=== PATIENT | male | born 1935 | race Caucasian/White ===

== ENCOUNTER 2017-08-13 05:25 | Day surgery (SDC) | payer OTHER, MEDICAID ==
[~2017-08-13] VITALS: Ht 165.1 cm; Wt 76.7 kg
[~2017-08-13 05:25] MED LIST: ATOR20TA65 PO; CIPR2.5D9 BOTHEYE; DILT240C3 PO; FURO20TA4 PO; HUM100IN SQ; MECL-109 PO; METO-539 PO; RANI150C12 PO; TRIAMCINOLONE ACETONIDE 40MG/ML 1ML VIAL ONE
[2017-08-13] MEDS ORDERED: SODIUM CHLORIDE 0.9% 1,000 ML IV SCH (07:00)
[2017-08-13] MEDS ORDERED: FENTANYL CITRATE/PF 50MCG/ML 2ML VIAL ONE (08:06)
[2017-08-13] MEDS ORDERED: MIDAZOLAM HCL 2 MG/2 ML VIAL ONE (08:06)
[2017-08-13] MEDS ORDERED: PROPOFOL 200MG/20ML VIAL IV ONE (08:06)
[2017-08-13] MEDS ORDERED: ONDANSETRON HCL 4MG/2ML VIAL IV PRN (08:30)
[2017-08-13] MEDS ORDERED: ACETAMINOPHEN 500MG TABLET PO PRN (09:15)
[2017-08-13] MEDS ORDERED: ASPI-1159 PO (09:37)
[2017-08-13] MEDS ORDERED: WARF-67 PO (09:37)
[2017-08-13] MEDS ORDERED: BUPIVACAINE HCL/PF 0.75% (7.5MG/ML) 10ML ONE (10:37)
[2017-08-13] MEDS ORDERED: TETRACAINE 0.5% OPHTH DROPS 4ML ONE (10:37)
[2017-08-13] MEDS ORDERED: PREDNISOLONE ACETATE 1% OPHTH DROPS 1ML ONE (10:37)
[2017-08-13] MEDS ORDERED: CIPROFLOXACIN 0.3% OPHTH SOLN 2.5ML ONE (10:37)
[2017-08-13] MEDS ORDERED: LIDOCAINE HCL 2%/EPINEPHRINE 1:100,000 20 ML VIAL INFIL ONE (10:37)
[2017-08-13] MEDS ORDERED: BALANCED SALT IRRIG SOLN 15ML ONE (10:37)
[2017-08-13] MEDS ORDERED: NEO/POLYMYX B SULF/DEXAMETH OPHTH OINT 3.5GM ONE (10:37)
== END 2017-08-13 10:30 | disposition home or self-care (01) ==
LOC: OR 05:25
PROVIDERS: ATTEND Ophthalmology
DX: H11.001 Unspecified pterygium of right eye (principal); E11.9 Type 2 diabetes mellitus without complications; I10 Essential (primary) hypertension; I50.9 Heart failure, unspecified; I48.91 Unspecified atrial fibrillation; D69.6 Thrombocytopenia, unspecified; I25.10 Atherosclerotic heart disease of native coronary artery without angina pectoris; K21.9 Gastro-esophageal reflux disease without esophagitis; E78.5 Hyperlipidemia, unspecified; Z79.82 Long term (current) use of aspirin; Z79.899 Other long term (current) drug therapy; Z79.4 Long term (current) use of insulin; Z79.01 Long term (current) use of anticoagulants; Z95.1 Presence of aortocoronary bypass graft
CPT/HCPCS: 65426; 82962; J2250; J3010; J3490; J2704; J3301